=== PATIENT | male | born 1975 | race Caucasian/White ===

== ENCOUNTER 2021-12-19 22:03 | Emergency (ER) | payer OTHER, BC ==
[2021-12-20] MEDS ORDERED: Ibuprofen 600 MG Tab PO ONE (00:23)
== END 2021-12-20 00:59 | disposition home or self-care (01) ==
LOC: MW.ED 22:03
DX: S20.212A Contusion of left front wall of thorax, initial encounter (principal); W22.8XXA Striking against or struck by other objects, initial encounter
CPT/HCPCS: 71101; 99283; A9270

== ENCOUNTER 2022-03-19 17:32 | Emergency (ER) | payer BC, OTHER | END 2022-03-19 21:15 | disposition home or self-care (01) | LOC: MW.ED 17:32 | DX: M25.521 Pain in right elbow (principal); E03.9 Hypothyroidism, unspecified; Z79.899 Other long term (current) drug therapy | CPT/HCPCS: 99282; 99283 ==

== ENCOUNTER 2022-05-21 07:19 | Day surgery (SDC) | payer OTHER ==
[~2022-05-21 07:19] MED LIST: Lactated Ringers 1,000 ML IV SCH
[2022-05-21] MEDS ORDERED: HYDROmorphone 1 MG/ML Syringe IVPUSH PRN ×2 (07:37→07:42)
[2022-05-21] MEDS ORDERED: Albuterol 0.083% 2.5 MG/3 ML Neb Soln NEB PRN ×2 (07:37→07:42)
[2022-05-21] MEDS ORDERED: Morphine 2 MG/ML SYRINGE IVPUSH PRN ×2 (07:37→07:42)
[2022-05-21] MEDS ORDERED: Ondansetron 4 MG/2 ML SDV IVPUSH PRN ×2 (07:37→07:42)
[2022-05-21] MEDS ORDERED: Naloxone 0.4 MG/ML SDV IVPUSH PRN ×2 (07:37→07:42)
[2022-05-21] MEDS ORDERED: fentaNYL 50 MCG/ML SDV IVPUSH PRN ×2 (07:37→07:42)
[2022-05-21] MEDS ORDERED: Metoclopramide 10 MG/2 ML SDV IVPUSH PRN ×2 (07:37→07:42)
[2022-05-21] MEDS ORDERED: ceFAZolin 2 GM in Premix Bag 1 BAG IV SCH (08:00)
[2022-05-21] MEDS ORDERED: Dexmedetomidine 200 MCG/2 ML SDV ONE (08:13)
[2022-05-21] MEDS ORDERED: Water For Injection, Sterile 20 ML ONE (08:13)
[2022-05-21] MEDS ORDERED: fentaNYL 100 MCG/2 ML SDV ONE (08:13)
[2022-05-21] MEDS ORDERED: Lidocaine 2% 5 ML SDV ONE (08:16)
[2022-05-21] MEDS ORDERED: Bupivacaine 0.5% 30 ML SDV ONE (08:16)
[2022-05-21] MEDS ORDERED: Propofol 200 MG/20 ML SDV ONE (08:34)
[2022-05-21] MEDS ORDERED: Succinylcholine/Sod PF 100 MG/5 ML SYRINGE IV ONE (10:09)
[2022-05-21] MEDS ORDERED: Rocuronium Bromide 50 MG/5 ML Syringe ONE (10:09)
[2022-05-21] MEDS ORDERED: Glycopyrrolate 0.2 MG/ML SDV ONE (10:37)
[2022-05-21] MEDS ORDERED: Phenylephrine HCl In 0.9% NaCl 1 MG/10 ML Vial ONE ×2 (10:38→10:40)
[2022-05-21] MEDS ORDERED: Sugammadex Sodium 200 MG/2 ML VIAL ONE (10:58)
[2022-05-21] MEDS ORDERED: Albuterol 8 GM Inhaler ONE (11:27)
== END 2022-05-21 13:15 | disposition home or self-care (01) ==
LOC: MW.SDS 07:19
PROVIDERS: ATTEND Orthopaedic Surgery
DX: S46.211A Strain of muscle, fascia and tendon of other parts of biceps, right arm, initial encounter (principal); G47.00 Insomnia, unspecified; K21.9 Gastro-esophageal reflux disease without esophagitis; E11.9 Type 2 diabetes mellitus without complications; E03.9 Hypothyroidism, unspecified; E66.9 Obesity, unspecified; F41.9 Anxiety disorder, unspecified; F17.210 Nicotine dependence, cigarettes, uncomplicated; F31.9 Bipolar disorder, unspecified; Z68.36 Body mass index [BMI] 36.0-36.9, adult; Z95.1 Presence of aortocoronary bypass graft; Z79.899 Other long term (current) drug therapy; Z79.890 Hormone replacement therapy; Z98.890 Other specified postprocedural states; Z86.73 Personal history of transient ischemic attack (TIA), and cerebral infarction without residual deficits; Z79.82 Long term (current) use of aspirin; Z79.83 Long term (current) use of bisphosphonates
CPT/HCPCS: 24342; 76000; A9270; J0131; J0330; J2704; J3010; J3490; J7120

== ENCOUNTER 2024-08-31 09:49 | Emergency (ER) | payer BC, OTHER ==
[2024-08-31 10:24] LABS: BASOPHILS ABSOLUTE AUTO 0.05 K/uL (0.00-0.20); BASOPHILS PERCENT AUTO 0.9 % (0.0-1.0); EOSINOPHILS ABSOLUTE AUTO 0.11 K/uL (0.00-0.45); HEMATOCRIT 45.9 % (42.0-52.0); HEMOGLOBIN 16.2 g/dL (14.0-18.0); IMMATURE GRAN ABSOLUTE AUTO 0.05 K/uL (0.00-0.05); IMMATURE GRAN PERCENT AUTO 0.9 % (0.0-0.4); LYMPHOCYTES ABSOLUTE AUTO 1.62 K/uL (1.00-4.80); LYMPHOCYTES PERCENT AUTO 30.2 % (24.0-44.0); MEAN CORPUSCULAR HEMOGLOBIN 28.9 pg (28.0-32.0); MEAN CORPUSCULAR HGB CONC 35.3 g/dL (32.0-36.0); MEAN PLATELET VOLUME 10.3 fL (9.4-12.4); MONOCYTES PERCENT AUTO 9.3 % (0.0-8.0); NEUTROPHILS ABSOLUTE AUTO 3.04 K/uL (1.80-7.70); NEUTROPHILS PERCENT AUTO 56.7 % (41.0-71.0); PLATELET COUNT,PLT 150 K/uL (150-400); WHITE BLOOD CELL COUNT,WBC 5.37 K/uL (3.9-11.3)
[2024-08-31] MEDS: Sodium Chloride 0.9% 1,000 ML IV ONE (10:26)
[2024-08-31] MEDS: Aspirin 81 MG Tab.Chew PO ONE (10:26)
[2024-08-31 10:33] LABS: INR 1.03 (0.86-1.11); PTT,PARTIAL THROMBOPLSTIN TIME 25.2 SEC (23.9-30.7)
[2024-08-31 10:50] LABS: A/G RATIO 1.2 (0.9-1.6); ALANINE AMINOTRANSFERASE,ALT 46 IU/L (14-63); ALBUMIN 3.9 g/dL (3.4-5.0); ALKALINE PHOSPHATASE 135 U/L (46-116); ASPARTATE AMNIOTRANSFERASE,AST 30 IU/L (15-37); BILIRUBIN TOTAL 0.7 mg/dL (0.2-1.0); BLOOD UREA NITROGEN,BUN 15 mg/dL (7.0-18.0); CHLORIDE,CL 100 mmol/L (98-107); CREATININE 1.3 mg/dL (0.8-1.3); EST CRCL DRUG DOSING (CG) 64.97 mL/min; GLUCOSE RANDOM 308 mg/dL (74-106); LIPASE 53 U/L (16-77); POTASSIUM,K 3.6 mmol/L (3.5-5.1); PROTEIN TOTAL,TP 7.2 g/dL (6.4-8.2); SODIUM,NA 136 mmol/L (136-148); TSH ULTRASENSITIVE 2.58 uIU/mL (0.36-3.74)
[2024-08-31 10:51] LABS: ESTIMATED GFR 68 mL/min (>60)
[2024-08-31] MEDS: Iopamidol 755 MG/ML 500 ML Multipack Bottle IVPUSH STA (10:53)
[2024-08-31 11:22] LABS: APPEARANCE,URINE CLEAR; BILIRUBIN,URINE NEGATIVE (NEGATIVE); COLOR,URINE YELLOW; GLUCOSE,URINE >=1000 mg/dL (NEGATIVE); KETONES,URINE NEGATIVE (NEGATIVE); LEUKOCYTE ESTERASE,URINE NEGATIVE (NEGATIVE); NITRITE,URINE NEGATIVE (NEGATIVE); OCCULT BLOOD,URINE NEGATIVE (NEGATIVE); PH,URINE 5.5 (5.0-8.0); PROTEIN,URINE NEGATIVE (NEGATIVE); UROBILINOGEN,URINE 0.2 EU/dL (<2.0)
== END 2024-08-31 12:35 | disposition home or self-care (01) ==
LOC: MW.ED 09:49
DX: R07.9 Chest pain, unspecified (principal); R04.2 Hemoptysis; K76.9 Liver disease, unspecified; E11.65 Type 2 diabetes mellitus with hyperglycemia; Z79.890 Hormone replacement therapy; Z79.82 Long term (current) use of aspirin; Z75.8 Other problems related to medical facilities and other health care; Z79.84 Long term (current) use of oral hypoglycemic drugs; Z79.899 Other long term (current) drug therapy
CPT/HCPCS: 36415; 71275; 80053; 81003; 83690; 83735; 84443; 84484; 85025; 85610; 85730; 93005; 96360; 99285; A9270; J7030; Q9967; 93010

== ENCOUNTER 2025-02-01 12:51 | Emergency (ER) | payer OTHER ==
[2025-02-01 14:28] LABS: BASOPHILS ABSOLUTE AUTO 0.04 K/uL (0.00-0.20); BASOPHILS PERCENT AUTO 0.8 % (0.0-1.0); EOSINOPHILS ABSOLUTE AUTO 0.11 K/uL (0.00-0.45); EOSINOPHILS PERCENT AUTO 2.2 % (0.0-6.0); IMMATURE GRAN ABSOLUTE AUTO 0.02 K/uL (0.00-0.05); IMMATURE GRAN PERCENT AUTO 0.4 % (0.0-0.4); LYMPHOCYTES ABSOLUTE AUTO 1.42 K/uL (1.00-4.80); LYMPHOCYTES PERCENT AUTO 28.4 % (24.0-44.0); MEAN PLATELET VOLUME 10.1 fL (9.4-12.4); MONOCYTES ABSOLUTE AUTO 0.44 K/uL (0.00-0.80); MONOCYTES PERCENT AUTO 8.8 % (0.0-8.0); NEUTROPHILS ABSOLUTE AUTO 2.97 K/uL (1.80-7.70); NEUTROPHILS PERCENT AUTO 59.4 % (41.0-71.0); NRBC ABSOLUTE 0.00 K/uL (0.00-0.02); NRBC PERCENT 0.0 /100WBC (0.0-0.2); PLATELET COUNT,PLT 144 K/uL (150-400); RED BLOOD CELL COUNT 5.23 M/uL (4.52-5.90); WHITE BLOOD CELL COUNT,WBC 5.00 K/uL (3.9-11.3)
[2025-02-01 14:38] LABS: A/G RATIO 1.2 (0.9-1.6); ALANINE AMINOTRANSFERASE,ALT 73 IU/L (14-63); ASPARTATE AMNIOTRANSFERASE,AST 58 IU/L (15-37); BILIRUBIN TOTAL 0.4 mg/dL (0.2-1.0); BLOOD UREA NITROGEN,BUN 18 mg/dL (7.0-18.0); CARBON DIOXIDE,CO2 25.8 mmol/L (21.0-32.0); CHLORIDE,CL 103 mmol/L (98-107); CREATININE 1.4 mg/dL (0.8-1.3); GLUCOSE RANDOM 210 mg/dL (74-106); POTASSIUM,K 3.9 mmol/L (3.5-5.1); PROTEIN TOTAL,TP 6.9 g/dL (6.4-8.2); SODIUM,NA 140 mmol/L (136-148)
[2025-02-01 14:45] LABS: ESTIMATED GFR 62 mL/min (>60)
[2025-02-01 15:06] LABS: APPEARANCE,URINE CLEAR; GLUCOSE,URINE >=1000 mg/dL (NEGATIVE); OCCULT BLOOD,URINE NEGATIVE (NEGATIVE)
== END 2025-02-01 15:37 | disposition home or self-care (01) ==
LOC: MW.ED 12:51
DX: K62.5 Hemorrhage of anus and rectum (principal); E78.00 Pure hypercholesterolemia, unspecified; I10 Essential (primary) hypertension; K21.9 Gastro-esophageal reflux disease without esophagitis; E11.9 Type 2 diabetes mellitus without complications; E03.9 Hypothyroidism, unspecified; Z75.3 Unavailability and inaccessibility of health-care facilities; Z79.890 Hormone replacement therapy; Z79.899 Other long term (current) drug therapy; Z79.84 Long term (current) use of oral hypoglycemic drugs
CPT/HCPCS: 36415; 80053; 81003; 83690; 85025; 99283; 99284